=== PATIENT | male | born 1990 | race African-American/Black ===

== ENCOUNTER 2024-09-14 01:09 | Emergency (ER) | payer SELFPAY ==
[~2024-09-14] VITALS: Ht 182.9 cm; Wt 77.0 kg
[2024-09-14 01:25] VITALS: BP 177/122; TEMP 36.7; O2SAT 99
[2024-09-14 01:27] VITALS: PULSE 90; RESP 18; O2SAT 98
== END 2024-09-14 04:15 | disposition home or self-care (01) ==
LOC: ER 01:09
DX: T16.1XXA Foreign body in right ear, initial encounter (principal); W44.F4XA Insect entering into or through a natural orifice, initial encounter; Y93.89 Activity, other specified; Y92.89 Other specified places as the place of occurrence of the external cause; Y99.8 Other external cause status
CPT/HCPCS: 69200; 99284